=== PATIENT | male | born 1940 | race Caucasian/White ===

== ENCOUNTER 2017-12-11 10:49 | Emergency (ER) | payer OTHER ==
[2017-12-11 11:41] LABS: Absolute Lymphocytes (CBC) 0.9 K/uL (0.7-4.9); Absolute Monocytes 0.6 K/uL (0.1-1.3); Absolute Neutrophil 7.2 K/uL (1.8-8.0); Basophils % 0.4 % (0-1.3); Eosinophils % 3.7 % (0-4.4); Hematocrit 33.9 % (39.6-49.0); Lymphocytes % 9.9 % (15.3-44.8); MCH 30.6 pg (27.0-35.0); MCV 87.2 fL (80-100); MPV 8.4 fL (7.6-11.3); Monocytes % 6.9 % (3.3-12.3); RBC Red Blood Cell Count 3.89 M/uL (4.33-5.43)
[2017-12-11 11:53] LABS: Potassium 3.5 mmol/L (3.5-5.1)
--- NOTE | 2017-12-11 12:58 | RAD REPORT ---
EXAM DESCRIPTION: CT - Head C Spine Cap Wo Con - 12/11/2017 12:32 pm CLINICAL HISTORY: Trauma, head and neck injury. Chest, abdomen and pelvis pain. fall from standing COMPARISON: CT ABD PELVIS W CONTRAST dated 08/23/2011 TECHNIQUE: CT head without contrast. CT cervical spine without contrast with coronal and sagittal reformatted images. CT chest, abdomen and pelvis without contrast with coronal and sagittal reformatted images of the spi ne. All CT scans are performed using dose optimization technique as appropriate and may include automated exposure control or mA/KV adjustment according to patient size. FINDINGS: CT HEAD WITHOUT CONTRAST: No intracranial hemorrhage, hydrocephalus or extra-axial fluid collection. Mild generalized brain atr ophy is present with mild periventricular and deep white matter chronic microvascular ischemic change s. No areas of brain edema or midline shift. The paranasal sinuses and mastoids are clear. The calvarium is intact. CT CERVICAL SPINE WITHOUT CONTRAST: No fracture or subluxation. Mild cervical degenerative changes are present. The prevertebral soft tis sues are normal in thickness. CT CHEST, ABDOMEN, PELVIS WITHOUT CONTRAST: NOTE: Lack of contrast is a significant limitation in the assessment of trauma related findings. Spec ifically, solid organ, vascular and bowel evaluation is significantly limited. Trace right pleural effusion is seen with linear atelectasis in the posterior right lung base.No worr isome pulmonary infiltrate.No pneumothorax or pericardial/ left pleural fluid. No evidence of intra-abdominal visceral injury, free fluid or free air is seen within the above detai led limitations. And irregular mass is seen in the rectum measuring approximately 3 cm. Small adjacen t perirectal lymph nodes are noted. The colon proximal to this level is significantly distended. Fat containing periumbilical ventral hernia is present. Sigmoid diverticulosis coli is present withou t diverticulitis. No fractures. IMPRESSION: Negative for acute traumatic findings within the above detailed limitations. 3 cm rectal mass is identified with significant distention of the upstream colon likely representing rectal carcinoma. Recommend colonoscopy followup. The findings were discussed with Dr. Youssef in the ER on 12/11/2017 at 12:55 p.m. by telephone.
--- NOTE | 2017-12-11 15:44 | ER ---
Nurse's Notes [facility] Emergency Department Name: Cosme Rasmussen III Age: 77 yrs Sex: Male : 1940 Arrival Date: 12/11/2017 Time: 10:51 Bed 6 Private MD: Diagnosis: Fall from standing, closed head injury, rectal mass 3 cm daphnie, parital colon obsrtruction, skin avulsion on right arm Presentation: 12/11 10:52 Presenting complaint: EMS states: Fell from standing while walking up 2 stairs. hb Negative LOC, not on blood thinners. Small contusion to right forehead, skin tears to right forearm, 20g RIGHT hand, C Collar in place. Care prior to arrival: Medication(s) given: Normal saline infusion, 200 ml IV initiated. 20 GA, in the right hand. Mechanism of Injury: Fall from standing position. Trauma event details: Injury occurred in the [facility], Injury occurred: at home. Injury occurred: December 11, 2017. 10:52 Acuity: YOANA 3 hb 10:52 Method Of Arrival: EMS: [facility] hb 10:53 Transition of care: patient was not received from another setting of care. Onset of hb symptoms was December 11, 2017. Risk Assessment: Do you want to hurt yourself or someone else? Patient reports no desire to harm self or others. Initial Sepsis Screen: Does the patient meet any 2 criteria? No. Patient's initial sepsis screen is negative. Does the patient have a suspected source of infection? No. Patient's initial sepsis screen is negative. Trauma Activation: Alert Physician: ED Physician; Name: Dr. Youssef; Notified At: 10:52; Arrived At: 10:53 Physician: General Surgeon; Name: ; Notified At: 10:53; Arrived At: Physician: Radiology; Name: ; Notified At: 10:53; Arrived At: Physician: Respiratory; Name: ; Notified At: 10:53; Arrived At: Physician: Lab; Name: ; Notified At: 10:53; Arrived At: Historical: - Allergies: 11:07 prochlorperazine Edisylate; hb 11:07 Prochlorperazine Maleate; hb - Home Meds: 11:07 losartan oral oral [Active]; hb - PMHx: 11:07 Hypertension; hb - Immunization history: Last tetanus immunization: - up to date. - Social history:: Smoking status: Patient/guardian denies using tobacco. - Ebola Screening: : No symptoms or risks identified at this time. Screenin:58 Abuse screen: Denies threats or abuse. Denies injuries from another. Tuberculosis hb screening: No symptoms or risk factors identified. 11:11 Nutritional screening: No deficits noted. Fall Risk Total Moffett Fall Scale indicates hb Low Risk Score (25-44 pts). Fall prevention measures have been instituted. Side Rails Up X 2 Frequent Obs/Assesments occuring As available Patient and Family Educated on Fall Prevention Program and strategies. Primary Survey: 10:55 A: Airway: patent, No supplemental oxygen in use on arrival. Breathing/Chest: hb Respiratory pattern: regular, Respiratory effort: spontaneous, unlabored, Breath sounds: clear, bilaterally. Chest inspection: symmetrical rise and fall of the chest. Circulation: Pulses: palpable . Skin color: pink, Skin temperature: warm, dry. Disability Alert. 11:45 Reassessment Airway Airway Patent Oxygen No O2 Breathing/Chest Respiratory pattern hb Regular Respiratory effort Spontaneous Unlabored Chest inspection Symmetrical Circulation Color [place] Temperature Warm Dry Disability Alert. 12:45 Reassessment Airway Airway Patent Oxygen No O2 Breathing/Chest Respiratory pattern hb Regular Respiratory effort Spontaneous Unlabored Chest inspection Symmetrical Circulation Color [place] Temperature Warm Dry Disability Alert. 13:30 Reassessment Airway Airway Patent Breathing/Chest Respiratory pattern Regular hb Respiratory effort Spontaneous Unlabored Chest inspection Symmetrical Circulation Temperature Warm Dry Disability Alert. 14:30 Reassessment Airway Airway Patent Oxygen No O2 Breathing/Chest Respiratory pattern hb Regular Respiratory effort Spontaneous Unlabored Chest inspection Symmetrical Circulation Color [place] Temperature Warm Dry Disability Alert. 15:30 Reassessment Airway Airway Patent Oxygen No O2 Breathing/Chest Respiratory pattern hb Regular Respiratory effort Spontaneous Unlabored Chest inspection Symmetrical Circulation Color [place] Temperature Warm Dry Disability Alert. 16:30 Reassessment Airway Airway Patent Breathing/Chest Respiratory pattern Regular hb Respiratory effort Spontaneous Unlabored Chest inspection Symmetrical Circulation Color [place] Temperature Warm Dry Disability Alert. 17:30 Reassessment Airway Airway Patent Oxygen No O2 Breathing/Chest Respiratory pattern hb Regular Respiratory effort Spontaneous Unlabored Chest inspection Symmetrical Circulation Color [place] Temperature Warm Dry Disability Alert. 18:26 Reassessment Airway Airway Patent Oxygen Breathing/Chest Respiratory pattern Regular hb Respiratory effort Spontaneous Unlabored Chest inspection Symmetrical Circulation Color [place] Temperature Warm Dry Disability Alert. Secondary Survey: 10:55 HEENT: Head Other contusion to right forehead. Gastrointestinal: No deficits noted. : hb No deficits noted. Musculoskeletal: Reports pain in upper back and back of neck. Injury Description: contusion to right forehead, skin tears to right forearm. Assessment: 11:03 General: Appears in no apparent distress. Behavior is calm, cooperative. Pain: Pain hb currently is 5 out of 10 on a pain scale. Neuro: Level of Consciousness is awake, alert, obeys commands, Oriented to person, place, time, situation. Cardiovascular: Heart tones S1 S2 present Capillary refill < 3 seconds Patient's skin is warm and dry. Respiratory: Airway is patent Trachea midline Respiratory effort is even, unlabored, Respiratory pattern is regular, symmetrical, Breath sounds are clear bilaterally. GI: No deficits noted. No signs and/or symptoms were reported involving the gastrointestinal system. : No deficits noted. No signs and/or symptoms were reported regarding the genitourinary system. EENT: No deficits noted. No signs and/or symptoms were reported regarding the EENT system. Derm: Skin is healthy with good turgor, Skin is pink, warm \\T\\ dry. Musculoskeletal: Reports pain in back and neck. Injury Description: contusion to right forehead, skin tears to right forearm. 12:02 Reassessment: Patient appears in no apparent distress at this time. No changes from hb previously documented assessment. Patient and/or family updated on plan of care and expected duration. Pain level reassessed. Patient is alert, oriented x 3, equal unlabored respirations, skin warm/dry/pink. 13:00 Reassessment: Patient appears in no apparent distress at this time. No changes from hb previously documented assessment. Patient and/or family updated on plan of care and expected duration. Pain level reassessed. Patient is alert, oriented x 3, equal unlabored respirations, skin warm/dry/pink. 14:00 Reassessment: Patient appears in no apparent distress at this time. No changes from hb previously documented assessment. Patient and/or family updated on plan of care and expected duration. Pain level reassessed. Patient is alert, oriented x 3, equal unlabored respirations, skin warm/dry/pink. 15:00 Reassessment: Patient appears in no apparent distress at this time. Patient and/or hb family updated on plan of care and expected duration. Pain level reassessed. Patient is alert, oriented x 3, equal unlabored respirations, skin warm/dry/pink. Transfer to [place] pending. 16:00 Reassessment: Patient appears in no apparent distress at this time. No changes from hb previously documented assessment. Patient and/or family updated on plan of care and expected duration. Pain level reassessed. Patient is alert, oriented x 3, equal unlabored respirations, skin warm/dry/pink. 17:00 Reassessment: Patient appears in no apparent distress at this time. No changes from hb previously documented assessment. Patient and/or family updated on plan of care and expected duration. Pain level reassessed. Patient is alert, oriented x 3, equal unlabored respirations, skin warm/dry/pink. 18:00 Reassessment: Patient appears in no apparent distress at this time. No changes from hb previously documented assessment. Patient and/or family updated on plan of care and expected duration. Pain level reassessed. Patient is alert, oriented x 3, equal unlabored respirations, skin warm/dry/pink. Vital Signs: 10:54 BP 150 / 68; Pulse 92; Resp 16; Temp 98; Pulse Ox 100% on R/A; Pain 5/10; hb 11:45 BP 148 / 66; Pulse 88; Resp 15; Pulse Ox 100% on R/A; Pain 3/10; hb 12:45 BP 129 / 68; Pulse 86; Resp 16; Pulse Ox 100% on R/A; hb 13:30 BP 150 / 66; Pulse 84; Resp 16; Pulse Ox 100% on R/A; hb 14:30 BP 138 / 68; Pulse 80; Resp 16; Pulse Ox 100% on R/A; Pain 1/10; hb 15:30 BP 136 / 70; Pulse 78; Resp 16; Pulse Ox 100% on R/A; Pain 0/10; hb 16:30 BP 137 / 67; Pulse 77; Resp 16; Pulse Ox 100% on R/A; Pain 0/10; hb 17:16 BP 138 / 67; Pulse 72; Resp 16; Pulse Ox 100% on R/A; Pain 0/10; hb 18:15 BP 166 / 73; Pulse 67; Resp 15; Pulse Ox 100% on R/A; Pain 0/10; hb [place] Coma Score: 11:45 Eye Response: spontaneous(4). Verbal Response: oriented(5). Motor Response: obeys hb commands(6). Total: 15. Trauma Score (Adult): 10:54 Eye Response: spontaneous(1); Verbal Response: oriented(1); Motor Response: obeys hb commands(2); Systolic BP: > 89 mm Hg(4); Respiratory Rate: 10 to 29 per min(4); [place] Score: 15; Trauma Score: 12 11:45 Eye Response: spontaneous(1); Verbal Response: oriented(1); Motor Response: obeys hb commands(2); Systolic BP: > 89 mm Hg(4); Respiratory Rate: 10 to 29 per min(4); Mary Score: 15; Trauma Score: 12 12:45 Eye Response: spontaneous(1); Verbal Response: oriented(1); Motor Response: obeys hb commands(2); Systolic BP: > 89 mm Hg(4); Respiratory Rate: 10 to 29 per min(4); Mary Score: 15; Trauma Score: 12 13:30 Eye Response: spontaneous(1); Verbal Response: oriented(1); Motor Response: obeys hb commands(2); Systolic BP: > 89 mm Hg(4); Respiratory Rate: 10 to 29 per min(4); [place] Score: 15; Trauma Score: 12 14:30 Eye Response: spontaneous(1); Verbal Response: oriented(1); Motor Response: obeys hb commands(2); Systolic BP: > 89 mm Hg(4); Respiratory Rate: 10 to 29 per min(4); Mary Score: 15; Trauma Score: 12 15:30 Eye Response: spontaneous(1); Verbal Response: oriented(1); Motor Response: obeys hb commands(2); Systolic BP: > 89 mm Hg(4); Respiratory Rate: 10 to 29 per min(4); Mary Score: 15; Trauma Score: 12 16:30 Eye Response: spontaneous(1); Verbal Response: oriented(1); Motor Response: obeys hb commands(2); Systolic BP: > 89 mm Hg(4); Respiratory Rate: 10 to 29 per min(4); [place] Score: 15; Trauma Score: 12 17:16 Eye Response: spontaneous(1); Verbal Response: oriented(1); Motor Response: obeys hb commands(2); Systolic BP: > 89 mm Hg(4); Respiratory Rate: 10 to 29 per min(4); [place] Score: 15; Trauma Score: 12 18:15 Eye Response: spontaneous(1); Verbal Response: oriented(1); Motor Response: obeys hb commands(2); Systolic BP: > 89 mm Hg(4); Respiratory Rate: 10 to 29 per min(4); [place] Score: 15; Trauma Score: 12 ED Course: 10:51 Patient arrived in ED. hb 10:54 Jackson Youssef MD is Attending Physician. kdr 10:54 Triage completed. hb 10:58 Patient has correct armband on for positive identification. Placed in gown. Bed in low hb position. Call light in reach. Side rails up X 1. 10:58 Patient maintains SpO2 saturation greater than 95% on room air. hb 11:00 Thermoregulation: warm blanket given to patient. hb 11:07 Arm band placed on right wrist. hb 11:28 Michelle Campos, RN is Primary Nurse. hb 11:36 Initial lab(s) drawn, by vt, sent to lab. T\\T\\S collected, blood band applied to patient. dh3 Inserted saline lock: 20 gauge in right antecubital area, using aseptic technique. Blood collected. 12:18 Head C Spine Cap Wo Con In Process Unspecified. EDMS 13:11 Served as a lead programmer during rectal exam. hb 13:27 Dressings: ABD pad X 1; dorsal aspect of right forearm Band aid x 1 right elbow Kerlix sg X 1; dorsal aspect of right forearm non-adherent dressing x 1 dorsal aspect of right forearm Steri strips 1/2 ". Wound care: to skin tear, abrasion located on dorsal aspect of right forearm was cleaned with soap and water, Patient tolerated well. 13:40 initiated a patient transfer with Keeley at the .Prak[facility] 13:48 Faxed over patient records and demographic to [facility]. zoila 17:19 \\[id number] Nathan with ED doctor for patient transfer consultation. \\[id number] Dr zoila Nathan accepted the patient in transfer and administrative approval given by Keeley Moreau. Patient going to the [facility] ER report to be called to [phone]. 18:34 Patient transferred, IV remains in place. hb Administered Medications: No medications were administered Intake: 11:45 PO: 0ml; Total: 0ml. hb Output: 11:45 Urine: 0ml; Total: 0ml. hb Outcome: 15:44 ER care complete, transfer ordered by . kdr 18:33 Transferred by ground EMS to [facility] 18:33 Condition: stable 18:33 Instructed on the need for transfer, Demonstrated understanding of instructions. 18:34 Patient's length of stay in the Emergency Department was greater than 2 hours. awaiting hb transpoPatient's length of stay extended due to 18:35 Patient left the ED. hb Signatures: Dispatcher [employer] EDMS Bobby Naik RN RN Jackson Youssef MD MD [facility] Michelle Campos RN RN Joanne Britton [facility] Ileana Candelario Corrections: (The following items were deleted from the chart) 15:12 13:29 BP 150 / 66; Pulse 84bpm; Resp 16bpm; Pulse Ox 100% RA; hb hb 15:12 13:29 Mary Score=15, Trauma Score=12, hb hb
--- NOTE | 2017-12-11 15:44 | EDPHYS ---
Physician Documentation [facility] Name: Cosme Rasmussen III Age: 77 yrs Sex: Male : 1940 Arrival Date: 12/11/2017 Time: 10:51 Bed 6 Private MD: ED Physician Jackson Youssef HPI: 12/11 11:25 This 77 yrs old Male presents to ER via EMS with complaints of Fall Injury. kdr 11:25 Details of fall: The patient fell from an upright position, while walking. Onset: The kdr symptoms/episode began/occurred suddenly, just prior to arrival. Associated injuries: The patient sustained injury to the head, neck injury. Severity of symptoms: At their worst the symptoms were mild, in the emergency department the symptoms are unchanged. The patient has not experienced similar symptoms in the past. The patient has not recently seen a physician. The patient was about to walk up a stair or up on a curb when he tripped hitting the ground with his head. He has a small abrasion to the right side of his head. He also has a skin tear to the right forearm. He denies any other pain from his fall. In the course of my exam, the patient also c/o pain to this abdomen diffusely. This has been going on for four days. He has no other c/o in the ED. Historical: - Allergies: 11:07 prochlorperazine Edisylate; hb 11:07 Prochlorperazine Maleate; hb - Home Meds: 11:07 losartan oral oral [Active]; hb - PMHx: 11:07 Hypertension; hb - Immunization history: Last tetanus immunization: - up to date. - Social history:: Smoking status: Patient/guardian denies using tobacco. - Ebola Screening: : No symptoms or risks identified at this time. ROS: 11:25 Constitutional: Negative for fever, chills, and weight loss, Eyes: Negative for injury, kdr pain, redness, and discharge, ENT: Negative for injury, pain, and discharge, Neck: Negative for injury, pain, and swelling, Cardiovascular: Negative for chest pain, palpitations, and edema, Respiratory: Negative for shortness of breath, cough, wheezing, and pleuritic chest pain, Abdomen/GI: Negative for abdominal pain, nausea, vomiting, diarrhea, and constipation, Back: Negative for injury and pain, : Negative for injury, bleeding, discharge, and swelling, MS/Extremity: Negative for injury and deformity, Skin: Negative for injury, rash, and discoloration, Psych: Negative for depression, anxiety, suicide ideation, homicidal ideation, and hallucinations, Allergy/Immunology: Negative for hives, rash, and allergies, Endocrine: Negative for neck swelling, polydipsia, polyuria, polyphagia, and marked weight changes, Hematologic/Lymphatic: Negative for swollen nodes, abnormal bleeding, and unusual bruising. 11:25 Neuro: Positive for headache. Exam: 11:25 Constitutional: This is a well developed, well nourished patient who is awake, alert, kdr and in no acute distress. Head/Face: Normocephalic, atraumatic. Eyes: Pupils equal round and reactive to light, extra-ocular motions intact. Lids and lashes normal. Conjunctiva and sclera are non-icteric and not injected. Cornea within normal limits. Periorbital areas with no swelling, redness, or edema. Neck: Trachea midline, no thyromegaly or masses palpated, and no cervical lymphadenopathy. Supple, full range of motion without nuchal rigidity, or vertebral point tenderness. No Meningismus. Chest/axilla: Normal chest wall appearance and motion. Nontender with no deformity. No lesions are appreciated. Cardiovascular: Regular rate and rhythm with a normal S1 and S2. No gallops, murmurs, or rubs. Normal PMI, no JVD. No pulse deficits. Respiratory: Lungs have equal breath sounds bilaterally, clear to auscultation and percussion. No rales, rhonchi or wheezes noted. No increased work of breathing, no retractions or nasal flaring. Abdomen/GI: Soft, non-tender, with normal bowel sounds. No distension or tympany. No guarding or rebound. No evidence of tenderness throughout. Back: No spinal tenderness. No costovertebral tenderness. Full range of motion. Skin: Warm, dry with normal turgor. Normal color with no rashes, no lesions, and no evidence of cellulitis. Neuro: Awake and alert, GCS 15, oriented to person, place, time, and situation. Cranial nerves II-XII grossly intact. Motor strength 5/5 in all extremities. Sensory grossly intact. Cerebellar exam normal. Normal gait. Psych: Awake, alert, with orientation to person, place and time. Behavior, mood, and affect are within normal limits. 11:25 Musculoskeletal/extremity: Extremities: grossly normal except: noted in the dorsal aspect of right forearm: abrasion, contusion, laceration, pain. Vital Signs: 10:54 BP 150 / 68; Pulse 92; Resp 16; Temp 98; Pulse Ox 100% on R/A; Pain 5/10; hb 11:45 BP 148 / 66; Pulse 88; Resp 15; Pulse Ox 100% on R/A; Pain 3/10; hb 12:45 BP 129 / 68; Pulse 86; Resp 16; Pulse Ox 100% on R/A; hb 13:30 BP 150 / 66; Pulse 84; Resp 16; Pulse Ox 100% on R/A; hb 14:30 BP 138 / 68; Pulse 80; Resp 16; Pulse Ox 100% on R/A; Pain 1/10; hb 15:30 BP 136 / 70; Pulse 78; Resp 16; Pulse Ox 100% on R/A; Pain 0/10; hb 16:30 BP 137 / 67; Pulse 77; Resp 16; Pulse Ox 100% on R/A; Pain 0/10; hb 17:16 BP 138 / 67; Pulse 72; Resp 16; Pulse Ox 100% on R/A; Pain 0/10; hb 18:15 BP 166 / 73; Pulse 67; Resp 15; Pulse Ox 100% on R/A; Pain 0/10; hb Mary Coma Score: 11:45 Eye Response: spontaneous(4). Verbal Response: oriented(5). Motor Response: obeys hb commands(6). Total: 15. Trauma Score (Adult): 10:54 Eye Response: spontaneous(1); Verbal Response: oriented(1); Motor Response: obeys hb commands(2); Systolic BP: > 89 mm Hg(4); Respiratory Rate: 10 to 29 per min(4); Mary Score: 15; Trauma Score: 12 11:45 Eye Response: spontaneous(1); Verbal Response: oriented(1); Motor Response: obeys hb commands(2); Systolic BP: > 89 mm Hg(4); Respiratory Rate: 10 to 29 per min(4); [place] Score: 15; Trauma Score: 12 12:45 Eye Response: spontaneous(1); Verbal Response: oriented(1); Motor Response: obeys hb commands(2); Systolic BP: > 89 mm Hg(4); Respiratory Rate: 10 to 29 per min(4); [place] Score: 15; Trauma Score: 12 13:30 Eye Response: spontaneous(1); Verbal Response: oriented(1); Motor Response: obeys hb commands(2); Systolic BP: > 89 mm Hg(4); Respiratory Rate: 10 to 29 per min(4); [place] Score: 15; Trauma Score: 12 14:30 Eye Response: spontaneous(1); Verbal Response: oriented(1); Motor Response: obeys hb commands(2); Systolic BP: > 89 mm Hg(4); Respiratory Rate: 10 to 29 per min(4); [place] Score: 15; Trauma Score: 12 15:30 Eye Response: spontaneous(1); Verbal Response: oriented(1); Motor Response: obeys hb commands(2); Systolic BP: > 89 mm Hg(4); Respiratory Rate: 10 to 29 per min(4); Mary Score: 15; Trauma Score: 12 16:30 Eye Response: spontaneous(1); Verbal Response: oriented(1); Motor Response: obeys hb commands(2); Systolic BP: > 89 mm Hg(4); Respiratory Rate: 10 to 29 per min(4); [place] Score: 15; Trauma Score: 12 17:16 Eye Response: spontaneous(1); Verbal Response: oriented(1); Motor Response: obeys hb commands(2); Systolic BP: > 89 mm Hg(4); Respiratory Rate: 10 to 29 per min(4); Mary Score: 15; Trauma Score: 12 18:15 Eye Response: spontaneous(1); Verbal Response: oriented(1); Motor Response: obeys hb commands(2); Systolic BP: > 89 mm Hg(4); Respiratory Rate: 10 to 29 per min(4); Mary Score: 15; Trauma Score: 12 MDM: 15:44 Patient medically screened. kdr 15:44 Data reviewed: vital signs, nurses notes, lab test result(s), EKG, radiologic studies. kdr Counseling: I had a detailed discussion with the patient and/or guardian regarding: the historical points, exam findings, and any diagnostic results supporting the discharge/admit diagnosis, lab results, radiology results, the need to transfer to another facility. ED course: D/w Dr. Garcia. Agreed to admission and consult if GI on board to do a biopsy. D/w Dr. Gonsalez, GI not currently research professional and he is unable to cover this needed procedure at this time. Recommended transfer. 12/11 11:01 Order name: Basic Metabolic Panel; Complete Time: 13:11 kdr 12/11 11:01 Order name: CBC with Diff; Complete Time: 13:11 [facility] 12/11 11:01 Order name: Creatinine for Radiology; Complete Time: 13:11 kdr 12/11 11:01 Order name: Type And Screen; Complete Time: 13:11 [facility] 12/11 12:24 Order name: ABO/RH no charge; Complete Time: 13:11 [facility] 12/11 13:14 Order name: Occult Blood--Ancillary eb 12/11 11:01 Order name: Labs collected and sent; Complete Time: 11:32 [facility] 12/11 12:15 Order name: Head C Spine Cap Wo Con; Complete Time: 13:11 [facility] Administered Medications: No medications were administered Disposition: 12/11/17 15:44 Transfer ordered to [facility]. Diagnosis is Fall from standing, closed head injury, rectal mass 3 cm daphnie, parital colon obsrtruction, skin avulsion on right arm. - Reason for transfer: Higher level of care. - Accepting physician is Dr. Nathan. - Condition is Fair. - Problem is new. - Symptoms are unchanged. Signatures: Dispatcher [employer] [facility] Jackson Youssef MD MD [facility] Michelle Campos, CHIDI RN Corrections: (The following items were deleted from the chart) 12:15 11:02 Head C Spine CAP W Con+CT.RAD.BRZ ordered. [facility] 18:35 15:44 12/11/2017 15:44 Transfer ordered to [facility]. Diagnosis is Fall from standing, closed head injury, rectal mass 3 cm daphnie, parital colon obsrtruction, skin avulsion on right arm. Reason for transfer: Higher level of care. Accepting physician is Dr. Nathan. Condition is Fair. Problem is new. Symptoms are unchanged. kdr
[2017-12-11 18:40] VITALS: TEMP 98; O2SAT 100
[2017-12-11 18:49] VITALS: BP 166/73
== END 2017-12-11 18:35 ==
LOC: ER 10:49
DX: S00.81XA Abrasion of other part of head, initial encounter (principal); S41.101A Unspecified open wound of right upper arm, initial encounter; S09.8XXA Other specified injuries of head, initial encounter; W01.198A Fall on same level from slipping, tripping and stumbling with subsequent striking against other object, initial encounter; Y93.01 Activity, walking, marching and hiking; Y92.9 Unspecified place or not applicable; I10 Essential (primary) hypertension; R22.9 Localized swelling, mass and lump, unspecified; K56.600 Partial intestinal obstruction, unspecified as to cause
CPT/HCPCS: 36415; 70450; 71250; 72125; 80048; 82272; 85025; 86850; 86900; 86901; 99285